=== PATIENT | female | born 1955 | race Caucasian/White ===

== ENCOUNTER 2020-11-12 16:30 | Inpatient (IN) | payer MEDICARE, MEDICAID ==
[~2020-11-12] VITALS: Ht 167.6 cm; Wt 65.8 kg
[2020-11-12 16:42] VITALS: BP 159/104
[2020-11-12] MEDS ORDERED: LISINOPRIL10 MG PO (16:49)
[2020-11-12 17:16] LABS: ABSOLUTE LYMPHOCYTES 0.7 thou/uL (0.8-5.3); ABSOLUTE MONOCYTES 0.5 thou/uL (0.0-1.2); ABSOLUTE NEUTROPHILS 3.9 thou/uL (1.6-8.1); BASOPHILS 0.6 %; EOSINOPHILS 0.1 %; HEMATOCRIT 38.6 % (37.0-47.0); HEMOGLOBIN 13.4 gm/dL (12.0-15.0); LYMPHOCYTES 14.1 %; MCH 36.7 pg (26.0-34.0); MCHC 34.8 g/dL (28.0-37.0); MCV 105.4 fL (80.0-100.0); MONOCYTES 10.2 %; MPV 7.8 fl. (7.2-11.1); NUCLEATED RBCS 0 /100WBC; PLATELET COUNT* 147 thou/uL (150-400); RBC 3.66 mil/uL (4.20-5.00); RDW-CV 14.5 % (10.5-14.5); WBC 5.2 thou/uL (4.0-11.0)
[2020-11-12 17:25] LABS: CREATININE 0.9 mg/dL (0.6-1.3); POTASSIUM 3.9 mmol/L (3.5-5.1)
[2020-11-12 17:30] LABS: ALBUMIN 3.7 g/dL (3.4-5.0); TOTAL BILIRUBIN 1.8 mg/dL (<0.1-1.0); TOTAL PROTEIN 8.9 g/dL (6.4-8.2)
[2020-11-12 18:05] LABS: URINE BLOOD TRACE (Negative); URINE CLARITY CLEAR; URINE COLOR YELLOW; URINE GLUCOSE-RANDOM NEGATIVE (Negative); URINE LEUKOCYTES-REFLEX TRACE (Negative); URINE NITRITE-REFLEX NEGATIVE (Negative); URINE PROTEIN 1+ (Negative); URINE SPECIFIC GRAVITY 1.025 (1.005-1.030)
[2020-11-12 18:06] LABS: URINE KETONES 3+ (Negative)
[2020-11-12 18:08] LABS: URINE BILIRUBIN 2+ (Negative)
[2020-11-12 18:09] LABS: ICTOTEST (BILI CONFIRMATORY) Negative (Negative)
[2020-11-12 18:12] LABS: MUCUS None Seen strn/LPF (None Seen); SQUAMOUS >10 Many /LPF (0-3)
[2020-11-12 18:13] LABS: HYALINE CASTS >10 Many /LPF (None Seen)
[2020-11-12 18:14] LABS: CRYSTALS None Seen /LPF (None Seen); URINE RBC 0-2 Rare /HPF (0-2); URINE WBC-REFLEX 0-5 Rare /HPF (0-5)
--- NOTE | 2020-11-12 19:09 | NUR ---
LT AC IV ACCESS INFILTRATED AT START OF CONTRAST INJECTION. THE ACCESS WAS REMOVED, ICE APPPLIED. NEW ACCESS GAINED IN LT AC. KOBE PURDY NOTIFIED. KENNY
[2020-11-12 20:00] VITALS: BP 128/72
[2020-11-12 20:04] VITALS: BP 134/75
[2020-11-12 20:46] LABS: PROTIME 10.4 Seconds (9.20-11.50)
[2020-11-13] VITALS: BP 112/68
--- NOTE | 2020-11-13 03:36 | NUR ---
PT ADMITTED FROM ED TO ROOM 207 BY MAYITO AND RN X1. PT AO X4 AND VERY SARCASTIC AND GAURDED WITH ANSWERING QUESTIONS. STATES WE DONT NEED TOKNOW SO MUCH. PT CIWA 8 AND IS EATING DINNER PROVIDED BY FRIEND AT BEDSIDE FOR SUPPORT. IV WAS BLEEDING AND OPSITE WAS CHANGED AND SITE CLEANED UP. PT ENCOURAGED TO KEEP ARM STILL AND STRAIGHT TO ENSURE LONGEVITY OF IV. PT PULLED OUT SOME TIME LATER AND REFUSED TO LET LAB DRAW BLOOD. PT HAS BEEN CALLING FOR FOOD AND CANDY FROM VENDING MACHINE BUT STATES SHE IS ON NO ANIMAL PRODUCT DIET AND STATES SHE HAS NOT EATEN FOR 4 DAYS AND HAS LOST 25+ LBS IN PAST MONTH. VSS. BED ALARM ON FOR SAFETY.
[2020-11-13 04:00] VITALS: BP 129/62
[2020-11-13 05:18] LABS: CALCIUM 8.5 mg/dL (8.5-10.1); MAGNESIUM 1.7 mg/dL (1.8-2.4); PHOSPHORUS* 1.3 mg/dL (2.5-4.9)
--- NOTE | 2020-11-13 06:26 | NUR ---
PT AO X4 WITH SOME AGGITATION AT TIMES WITH STAFF REQUESTS FOR LAB DRAWS ATTEMPT TO RE ESTABLISH IV. SHE HAS SLEPT WELL THIS PM SHIFT WITH SOME REQUESTS FOR FOOD AND HELP WITH REMOTE. SHE IS VERY ANXIOUS ABOUT HER HOME MEDS BEING STARTED. CALL LIGHT IN REACH AND BED ALARM ON FOR SAFETY
--- NOTE | 2020-11-13 07:15 | NUR ---
CHANGE OF SHIFT BEDSIDE REPORT GIVEN PATIENT SEEN AT BEDSIDE, IN BED RESTING ASSUMED PATIENT CARE
[2020-11-13 08:00] VITALS: BP 134/70
[2020-11-13 13:20] VITALS: BP 133/77
[2020-11-13] MEDS ORDERED: LISINOPRIL20 MG PO (14:20)
--- NOTE | 2020-11-13 14:55 | EKG ---
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
--- NOTE | 2020-11-13 15:52 | NUR ---
Pt is A&O. Independent. Resides at home alone. Supportive friends. No DME. Pt slightly irritable, telling CM "I haven't had any sleep for days, I don't feel like talking." Refusing labs. Hx of ETOH. Therapies ordered. IVabx. CM left DPOA paperwork on Pt's side table.
--- NOTE | 2020-11-13 16:40 | 2DMMODE ---
[place] [address] 2 D/M-MODE ECHOCARDIOGRAM Name: BENJAMÍN SANON Room: [address] IN [facility]#: [id number] Admission: 11/12/20 Attend Phys: Naveed Leonard Discharge: Date of : 55 Date of Service: 11/13/20 1640 Report #: [id number] THIS REPORT FOR: cc: Nathalia Connelly Mischelle RNP Liston, Michael J. MD [facility] ~ APPROVED REPORT Study performed: 11/13/2020 16:10:47 EXAM: Comprehensive 2D, Doppler, and color-flow Echocardiogram Patient Location: In-Patient Room #: [facility] Status: routine BSA: 1.74 HR: 53 bpm BP: 133/77 mmHg Rhythm: NSR Other Information Study Quality: Good Indications Elevated Troponin 2D Dimensions IVSd: 10.51 (7-11mm) LVOT Diam: 19.73 (18-24mm) LVDd: 43.95 mm PWd: 8.52 (7-11mm) Ascending Ao: 35.02 (22-36mm) LVDs: 26.06 (25-40mm) Aortic Root: 41.80 mm Volumes Left Atrial Volume (Systole) LA ESV Index: 21.70 mL/m2 Aortic Valve AoV Peak Patrick.: 1.44 m/s AO Peak Gr.: 8.25 mmHg LVOT Max P.34 mmHg AO Mean Gr.: 4.46 mmHg LVOT Mean P.82 mmHg LVOT Max V: 1.26 m/s AO V2 VTI: 28.41 cm LVOT Mean V: 0.76 m/s MORENO (VTI): 2.90 cm2 LVOT V1 VTI: 26.91 [place] [address] 2 D/M-MODE ECHOCARDIOGRAM Name: BENJAMÍN SANON Room: [address] IN [facility]#: [id number] Admission: 11/12/20 Attend Phys: Naveed Leonard Discharge: Date of : 55 Date of Service: 11/13/20 [facility] Report #: [id number] Mitral Valve E/A Ratio: 1.06 MV Decel. Time: 196.12 ms MV E Max Patrick.: 1.00 m/s MV PHT: 56.87 ms MVA (PHT): 3.87 cm2 TDI E/Lateral E': 11.11 E/Medial E': 10.00 Medial E' Patrick.: 0.10 m/s Lateral E' Patrick.: 0.09 m/s Pulmonary Valve PV Peak Patrick.: 0.93 m/s PV Peak Gr.: 3.48 mmHg Left Ventricle The left ventricle is normal size. There is normal LV segmental wall motion. There is normal left ventricular wall thickness. Left ventricular systolic function is normal. LVEF is 60-65%. Transmitral Doppler flow pattern suggests impaired LV relaxation. Right Ventricle The right ventricle is normal size. The right ventricular systolic function is normal. Atria The left atrium size is normal. The right atrium size is normal. Aortic Valve The aortic valve is normal in structure. No aortic regurgitation is present. There is no aortic valvular stenosis. Mitral Valve The mitral valve is normal in structure. There is no mitral valve regurgitation noted. No evidence of mitral valve stenosis. Tricuspid Valve The tricuspid valve is normal in structure. Trace tricuspid regurgitation. Unable to assess PA pressure. Pulmonic Valve The pulmonary valve is normal in structure. There is no pulmonic valvular regurgitation[place] [address] 2 D/M-MODE ECHOCARDIOGRAM Name: BENJAMÍN SANON Room: [address]#: [id number] Admission: 11/12/20 Attend Phys: Naveed Leonard Discharge: Date of : 55 Date of Service: 11/13/20 1640 Report #: [id number] The aortic root is normal in size. IVC is normal in size and collapses >50% with inspiration. Pericardium There is no pericardial effusion. <Conclusion> The left ventricle is normal size. There is normal left ventricular wall thickness. Left ventricular systolic function is normal. LVEF is 60-65%. Transmitral Doppler flow pattern suggests impaired LV relaxation. IVC is normal in size and collapses >50% with inspiration. Trace tricuspid regurgitation. <ELECTRONICALLY SIGNED> By: Dylan Michel MD, FACC 11/13/20 1640 1640 1640 Dylan Michel MD, FACC /INF
[2020-11-13 18:17] VITALS: BP 113/65
[2020-11-13 20:00] VITALS: BP 115/71
[2020-11-14] VITALS: BP 108/72
[2020-11-14 04:00] VITALS: BP 123/66
[2020-11-14 04:50] LABS: ABSOLUTE LYMPHOCYTES 1.1 thou/uL (0.8-5.3); ABSOLUTE MONOCYTES 0.2 thou/uL (0.0-1.2); BASOPHILS 1.3 %; HEMATOCRIT 27.1 % (37.0-47.0); LYMPHOCYTES 46.5 %; MCH 37.3 pg (26.0-34.0); MCHC 35.4 g/dL (28.0-37.0); MCV 105.4 fL (80.0-100.0); MONOCYTES 7.4 %; MPV 8.9 fl. (7.2-11.1); NUCLEATED RBCS 0 /100WBC; POLYS 42.8 %; RBC 2.57 mil/uL (4.20-5.00); RDW-CV 14.5 % (10.5-14.5); WBC 2.4 thou/uL (4.0-11.0)
[2020-11-14 04:51] LABS: HEMOGLOBIN 9.6 gm/dL (12.0-15.0); PLATELET COUNT* 72 thou/uL (150-400)
[2020-11-14 05:05] LABS: CALCIUM 8.1 mg/dL (8.5-10.1); CREATININE 0.7 mg/dL (0.6-1.3); MAGNESIUM 1.5 mg/dL (1.8-2.4); PHOSPHORUS* 1.2 mg/dL (2.5-4.9); POTASSIUM 3.4 mmol/L (3.5-5.1)
[2020-11-14 07:45] VITALS: BP 128/81
[2020-11-14 12:00] VITALS: BP 119/68
--- NOTE | 2020-11-14 13:00 | NUR ---
ASSUMED CARE OF PT AT 0730. PT SITTING AT EDGE OF BED WAITING FOR BREAKFAST. A&0X4, COMPLAINS OF GENERALIZED PAIN-TREATED WITH PRN TYLENOL WITH RELIEF. TRACING SR ON THE STAINING MACHINE OPERATOR. ON RA SAT UPPER 90'S. DENIES ANY SHORTNESS OF BREATH. PT UP WITH SBA TO BATHROOM. IVF. CIWA CHARTED. CARDIO CONSULT IN PLACE. PT GOAL FOR TODAY IS REPLACE POTASSIUM AND MAGNESIUM PER ELECTROLYTE PROTOCOL, INCREASE ACTIVITY AND PAIN MGMT. AM ASSESSMENT CHARTED. MEDICATIONS PER AUG. PT REPOSITIONS SELF. HOURLY ROUNDING OBSERVED. BED IN LOW POSITION. CALL LIGHT WITHIN REACH. WILL CONTINUE PLAN OF CARE.
--- NOTE | 2020-11-14 14:09 | NUR ---
Anticipate dc tomorrow. If Pt needs HH, fax facesheet, dc orders and H&P to [facility] [phone]
[2020-11-14 17:14] VITALS: BP 150/89
[2020-11-14 20:34] VITALS: BP 138/75
[2020-11-15] VITALS: BP 149/78
[2020-11-15 04:00] VITALS: BP 127/73
[2020-11-15 04:46] LABS: ALBUMIN 2.9 g/dL (3.4-5.0); ALKALINE PHOSPHATASE 269 U/L (46-116); ANION GAP 7 mmol/L (7-16); BUN 5 mg/dL (7-18); CALCIUM 8.4 mg/dL (8.5-10.1); CHLORIDE 103 mmol/L (98-107); CO2 29 mmol/L (21-32); CREATININE 0.7 mg/dL (0.6-1.3); GLUCOSE 153 mg/dL (70-99); POTASSIUM 3.9 mmol/L (3.5-5.1); SGOT 658 U/L (15-37); SGPT 324 U/L (30-65); SODIUM 139 mmol/L (136-145); TOTAL BILIRUBIN 0.4 mg/dL (<0.1-1.0); TOTAL PROTEIN 6.7 g/dL (6.4-8.2); TROPONIN-I LEVEL <0.06 ng/mL (<0.06)
--- NOTE | 2020-11-15 05:57 | NUR ---
PT IS ABLE TO COMMUNICATE HER NEEDS TO STAFF EFFECTIVELY; SHE CAN BE FUSSY AND IMPULSIVE AT TIMES. SHE HAS DENIED THE NEED FOR PAIN MEDICATION UP TO THIS TIME. POSSIBLE DISCHARGE TODAY.
[2020-11-15 07:23] LABS: AMP/METHAMP Negative (Negative); BARBITURATES Negative (Negative); BENZODIAZEPINES Negative (Negative); COCAINE Negative (Negative); METHADONE Negative (Negative); OPIATES Negative (Negative); PCP Negative (Negative); THC Negative (Negative)
[2020-11-15 08:00] VITALS: BP 142/86
--- NOTE | 2020-11-15 10:56 | NUR ---
ASSUMED CARE OF PT AT 0730. PT LYING IN BED. A&0X4, DENIES ANY PAIN OR SHORTNESS OF BREATH AT THIS TIME. PT IMPULSIVE AT TIMES-EDUCATION GIVEN TO PT REGARDING SAFETY, TRACING SR ON THE [employer]UGBOAT CAPTAIN. ON RA SAT UPPER 90'S. IVF. PT UP WITH SBA TO BATHROOM. PT GOAL FOR TODAY IS REPLACE MAGNESIUM PER ELECTROLYTE PROTOCOL, INCREASE ACTIVITY AND DISCHARGE PLANNING. AM ASSESSMENT CHARTED. MEDICATIONS PER MAR. PT REPOSITIONS SELF. HOURLY ROUNDING OBSERVED. BED IN LOW POSITION. FALL PRECAUTIONS IN PLACE. BED ALARM IN PLACE. CALL LIGHT WITHIN REACH. WILL CONTINUE PLAN OF CARE.
[2020-11-15 12:00] VITALS: BP 140/85
[2020-11-15] MEDS ORDERED: PRENATAL PO (12:26)
[2020-11-15] MEDS ORDERED: VITAMIN B-1100 M1 PO (12:26)
[2020-11-15] MEDS ORDERED: CEFDINIR300 MG PO (12:26)
[2020-11-15 16:00] VITALS: BP 153/87
[2020-11-15 20:19] VITALS: BP 147/89
[2020-11-16 00:25] VITALS: BP 137/86
[2020-11-16 05:13] VITALS: BP 130/60
--- NOTE | 2020-11-16 05:45 | NUR ---
PT IS ABLE TO COMMUNICATE HER NEEDS TO STAFF EFFECTIVELY; SHE CAN BE IMPULSIVE AT TIMES, BUT THIS SEEMS TO BE IMPROVING. CURRENT PAIN MEDICATION REGIMEN HAS BEEN ADEQUATE FOR CONTROLLING HER PAIN UP TO THIS TIME. POSSIBLE DISCHARGE TODAY.
[2020-11-16 06:06] LABS: ABSOLUTE EOSINOPHILS 0.1 thou/uL (0.0-0.7); ABSOLUTE LYMPHOCYTES 1.2 thou/uL (0.8-5.3); ABSOLUTE MONOCYTES 0.2 thou/uL (0.0-1.2); ABSOLUTE NEUTROPHILS 0.9 thou/uL (1.6-8.1); BASOPHILS 1.6 %; HEMATOCRIT 31.3 % (37.0-47.0); HEMOGLOBIN 10.8 gm/dL (12.0-15.0); LYMPHOCYTES 48.5 %; MCH 36.7 pg (26.0-34.0); MCHC 34.5 g/dL (28.0-37.0); MCV 106.3 fL (80.0-100.0); MPV 8.9 fl. (7.2-11.1); NUCLEATED RBCS 0 /100WBC; PLATELET COUNT* 109 thou/uL (150-400); POLYS 35.9 %; RBC 2.95 mil/uL (4.20-5.00); RDW-CV 14.6 % (10.5-14.5); WBC 2.5 thou/uL (4.0-11.0)
[2020-11-16 06:09] LABS: CALCIUM 8.4 mg/dL (8.5-10.1); CREATININE 0.7 mg/dL (0.6-1.3); POTASSIUM 3.7 mmol/L (3.5-5.1)
[2020-11-16 07:45] VITALS: BP 141/81
--- NOTE | 2020-11-16 09:07 | NUR ---
ASSUMED CARE OF PT AT 0730. PT A&0X4, SLEEPY, DENIES ANY PAIN OR SHORTNESS OF BREATH AT THIS TIME. TRACING SR ON THE KELP CUTTER. ON RA SAT UPPER 90'S. PT UP WITH SBA TO BATHROOM-WEAKNESS NOTED. IVF. PT GOAL FOR TODAY IS DISCHARGE PLANNING TO HOME. AM ASSESSMENT CHARTED. MEDICATIONS PER MAR. PT REPOSITIONS SELF. HOURLY ROUNDING OBSERVED. BED IN LOW POSITION. CALL LIGHT WITHIN REACH. WILL CONTINUE PLAN OF CARE.
[2020-11-16 10:10] VITALS: BP 141/81
--- NOTE | 2020-11-16 13:00 | NUR ---
DISCHARGE ORDERS RECEIVED. DISCHARGE INSTRUCTIONS, CARE NOTES, E SCRIPTS AND FOLLOW UP APPTS GIVEN TO PT. PT COMMUNICATES UNDERSTANDING OF DISCHARGE TEACHING. IV AND PLANT PROTECTION OFFICER REMOVED. PT DISCHARGED WITH ALL BELONGINGS AND PAPERWORK VIA WHEELCHAIR WITH NURSING STAFF TO FRIEND OWN PERSONAL VEHICLE.
== END 2020-11-16 13:00 | disposition home or self-care (01) | DRG 433 ==
LOC: M.ERS 16:30 → M.2W 18:19 → M.TBA-ER 18:19 → M.2W 19:19
PROVIDERS: Emergency Medicine Emergency Medical Services; ADMIT Internal Medicine; ATTEND Internal Medicine
DX: K70.10 Alcoholic hepatitis without ascites (principal); N39.0 Urinary tract infection, site not specified; D61.818 Other pancytopenia; K76.6 Portal hypertension; I10 Essential (primary) hypertension; F43.10 Post-traumatic stress disorder, unspecified; R63.0 Anorexia; E83.42 Hypomagnesemia; E83.39 Other disorders of phosphorus metabolism; E78.5 Hyperlipidemia, unspecified; F10.20 Alcohol dependence, uncomplicated; Y90.9 Presence of alcohol in blood, level not specified; R07.89 Other chest pain; K76.0 Fatty (change of) liver, not elsewhere classified; Z20.822 Contact with and (suspected) exposure to COVID-19; Z88.0 Allergy status to penicillin; Z87.891 Personal history of nicotine dependence; Z79.899 Other long term (current) drug therapy; Z68.23 Body mass index [BMI] 23.0-23.9, adult